=== PATIENT | male | born 2000 | race Caucasian/White ===

== ENCOUNTER 2021-10-30 15:46 | Emergency (ER) | payer MEDICAID ==
[~2021-10-30] VITALS: Ht 177.8 cm; Wt 86.0 kg
[2021-10-30] MEDS ORDERED: IBUPROFEN 600MG TABLET PO ONE (16:30)
[2021-10-30] MEDS ORDERED: ACETAMINOPHEN 325MG TABLET PO ONE (16:30)
[2021-10-30 16:50] VITALS: BP 130/71
== END 2021-10-30 16:51 | disposition home or self-care (01) ==
LOC: ER 15:46
DX: S39.012A Strain of muscle, fascia and tendon of lower back, initial encounter (principal); Y93.6A Activity, physical games generally associated with school recess, summer camp and children; Y93.89 Activity, other specified; Y92.89 Other specified places as the place of occurrence of the external cause; Y99.8 Other external cause status
CPT/HCPCS: 99283

== ENCOUNTER 2022-09-07 15:38 | Emergency (ER) | payer MEDICAID ==
[~2022-09-07] VITALS: Ht 177.8 cm; Wt 79.0 kg
[2022-09-07 16:44] VITALS: BP 121/60
== END 2022-09-07 20:11 | disposition home or self-care (01) ==
LOC: ER 15:38
DX: M94.0 Chondrocostal junction syndrome [Tietze] (principal); Z90.49 Acquired absence of other specified parts of digestive tract
CPT/HCPCS: 99281